=== PATIENT | male | born 1975 | race Caucasian/White ===

== ENCOUNTER 2017-04-14 03:49 | Emergency (ER) | payer OTHER ==
--- NOTE | ~2017-04-14 | CT71 ---
[facility] A Service of [facility] RADIOLOGY TEXT RESULTS PATIENT: AUDREY UREÑA LOCATION: [facility] : 71 UNIT #: [id number] AGE: [address]: William Schaeffer MD SEX: M ORDER DR: [id number] [facility] [address] [place], [place] [address] [id number] MR#: [id number] Acc #: [id number] NAME: AUDREY UREÑA : 1975 SEX: M STUDY DATE/TIME: 04/14/2017 5:59 UNIT: ZAC ROOM: STUDY DESCRIPTION: CT Head Wo Contrast Attending Physician: William Schaeffer M.D. Ordering Physician: Preston Woods D.O. Primary Care Physician: Primary Care Physician No MEDICAL IMAGING REPORT This report is preliminary unless electronic signature is present EXAM Head CT 04/14/2017 INDICATION Right side headache for 24 hours with neck pain and vomiting. COMPARISON Comparison. FINDINGS Axial images were obtained from the base to the vertex without contrast. This CT examination was performed with one or more of the following radiation dose reduction techniques: automatic exposure control, adjustment of mA and/or kV according to patient size, and iterative reconstruction. Ventricular size and configuration are within normal limits. There is no acute infarct or hemorrhage. There are no masses. No skull fracture. There is mild chronic mucosal thickening in the maxillary sinuses and ethmoid air cells. IMPRESSION Mild chronic mucosal thickening in the maxillary sinuses and ethmoid air cells. Otherwise, negative head CT. Dictated by... Darryl Bedoya Jr., M.D. THIS IS AN ELECTRONICALLY VERIFIED REPORT Darryl Bedoya Jr., M.D. at 04/15/2017 6:05 AM CHERELLE/dana TD: 04/14/2017 10:44 JOB #: [id number] [facility] A Service [facility] RADIOLOGY TEXT RESULTS PATIENT: AUDREY UREÑA LOCATION: [facility] : 71 UNIT #: [id number] AGE: [address]: William Schaeffer MD SEX: M ORDER DR: MEDICAL IMAGING REPORT Page 1 of 1 COPY
[~2017-04-14 03:49] MED LIST: ALPRAZOLAM PO; BACTRIM DS TABL1 TA1 PO; BACTROBAN22 GM TP; BENZONATATE PO; DAKIN'S MODIF1000 ML EXT; HIBICLENS 4% L120 ML TOP; IBUPROFEN800 MG PO; KEFLEX PO; METHADONE PO; NO MEDICATIONS; PERCOCET 5-3251 TAB PO; PERCOCET PO; SANTYL15 G1 TP; TRAMADOL HCL200 MG PO; TRAMADOL HCL50 M1 PO; Z-PAK
[2017-04-14 06:48] LABS: BASOPHIL# 0.1 X10e3 (0-0.3); BASOPHIL% 0.8 % (0-2.5); EOSINOPHIL# 0.3 X10e3 (0-0.7); EOSINOPHIL% 2.3 % (0.0-7.0); HEMATOCRIT 37.1 % (38.0-50.0); HEMOGLOBIN 12.1 gm/dL (13.0-16.0); LYMPHOCYTE# 1.9 X10e3 (1.0-3.5); LYMPHOCYTE% 17.3 % (17.0-45.0); MEAN CELL VOLUME 92.1 FL (83-96); MEAN CORPUSCULAR HEMOGLOBIN 29.9 PG (28-34); MEAN CORPUSCULAR HGB CONC 32.5 g/dL (30-36); MEAN PLATELET VOLUME 7.3 FL (6.5-11.5); MONOCYTE# 0.9 X10e3 (0-1.0); MONOCYTE% 8.1 % (3.0-12.0); NEUTROPHIL% 71.5 % (40-75); PLATELET COUNT 314 X10e3 (140-420); RED BLOOD COUNT 4.03 X10e (3.90-5.60); RED CELL DISTRIBUTION WIDTH 14.3 % (11.0-15.5); WHITE BLOOD COUNT 11.2 X10e3 (4.0-10.5)
[2017-04-14 06:51] LABS: DIFF IND NO
[2017-04-14 07:03] LABS: PROTHROMBIN TIME (PATIENT) 10.2 SECONDS (9.6-11.5)
[2017-04-14 07:24] LABS: ALBUMIN SERUM 3.8 g/dL (3.5-5.0); BILIRUBIN, DIRECT 0.2 mg/dL (0.0-0.2); BILIRUBIN,INDIRECT 0.5 mg/dL (0.0-0.9); BILIRUBIN,TOTAL 0.7 mg/dL (0.2-2.0); BUN/CREATININE RATIO 28.88; CREATININE SERUM 0.9 mg/dL (0.6-1.4); GLOM FILT RATE Estimated 104.2 mL/min (>60); PROTEIN TOTAL SERUM 7.2 g/dL (6.0-8.3)
[2017-04-14 10:54] LABS: AMPHETAMINE POS (NEG); BARBITURATES NEG (NEG); BENZODIAZEPINES NEG (NEG); COCAINE NEG (NEG); MARIJUANA NEG (NEG); OPIATES POS (NEG); TRICYCLIC ANTIDEPRESSANTS NEG (NEG); U METHADONE NEG (NEG)
== END 2017-04-14 11:15 | disposition left against medical advice (07) ==
LOC: CED 03:49
PROVIDERS: Emergency Medicine
DX: R51 Headache (principal); R11.0 Nausea; M54.2 Cervicalgia; F17.200 Nicotine dependence, unspecified, uncomplicated; Z90.49 Acquired absence of other specified parts of digestive tract
CPT/HCPCS: 36415; 70450; 80048; 80076; 80307; 85025; 85610; 85730; 96361; 96374; 96375; 99284; J1100; J2765